=== PATIENT | male | born 1995 | race Caucasian/White ===

== ENCOUNTER 2024-03-02 11:49 | Emergency (ER) | payer SELFPAY ==
[2024-03-02 12:05] VITALS: BP 139/84; PULSE 130; RESP 17; TEMP 36.8; O2SAT 97; BMI 25.8
[2024-03-02 12:39] VITALS: BP 139/103; PULSE 126; O2SAT 97
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
[2024-03-02 14:36] LABS: Basophils % 0.1 %; Hematocrit 35.3 % (37-53); Lymphocytes % 5.6 %; Mean Corpuscular HGB Conc 35.4 g/dL (30-55); Mean Corpuscular Hemoglobin 29.6 pg (27-33); Mean Corpuscular Volume 83.6 fl (82-101); Mean Platelet Volume 9.1 fL (7.4-10.4); Monocytes # 1.1 10^3/uL (0.2-0.9); Monocytes % 6.3 %; Neutrophils # 15.64 10^3/uL (1.8-7.7); Neutrophils % 87.6 %; Nucleated Red Blood Cells % 0 %; Platelet Count 277 10^3/cmm (157-399); Red Blood Count 4.22 10^6/uL (3.85-5.65); Red Cell Distribution Width 12.5 % (12.1-15.1); White Blood Count 17.85 10^3/uL (3.29-11.43)
[2024-03-02 14:42] LABS: INR 1.05 (0.8-1.2)
[2024-03-02 14:48] LABS: Alanine Aminotransferase 26 U/L (0-41); Albumin Level 4.2 g/dL (3.5-5.2); Alkaline Phosphatase 79 U/L (40-130); Anion Gap 18.1 (5-19); Aspartate Amino Transferase 36 U/L (0-40); Blood Urea Nitrogen 16 mg/dL (6-20); Calcium 9.3 mg/dL (8.5-10.5); Carbon Dioxide 25 mmol/L (22-29); Chloride 95 mmol/L (98-107); Creatinine Clr Calc Pharmacy 147.3425; Globulin 2.8 g/dL (1.3-4.6); Glomerular Filtration Rate 114.3 mL/min (90-130); Glucose 136 mg/dL (65-115); Osmolality Calculated 281 mOsm/kg (285-295); Potassium 4.1 mmol/L (3.5-5.1); Sodium 134 mmol/L (136-145); Total Bilirubin 0.7 mg/dL (0.15-1.2)
[2024-03-02 15:31] VITALS: BP 127/91; PULSE 137; RESP 17; O2SAT 95
--- NOTE | 2024-03-02 15:35 | PC.NURSE ---
REPORT CALLED TO IVANNA GUAMAN AT [facility] FOR ER TO ER TRANSFER.
[2024-03-02 16:52] VITALS: BP 138/95; PULSE 125; O2SAT 95
== END 2024-03-02 16:53 | disposition short-term general hospital (02) ==
PROVIDERS: Emergency Provider Emergency Medicine
DX: S36.032A Major laceration of spleen, initial encounter (principal); S22.42XA Multiple fractures of ribs, left side, initial encounter for closed fracture; S42.214A Unspecified nondisplaced fracture of surgical neck of right humerus, initial encounter for closed fracture; S61.512A Laceration without foreign body of left wrist, initial encounter; V89.2XXA Person injured in unspecified motor-vehicle accident, traffic, initial encounter
CPT/HCPCS: 70450; 71250; 72125; 73060; 73110; 74177; 80053; 85025; 85610; 99284; Q9967